=== PATIENT | male | born 1990 | race Caucasian/White ===

== ENCOUNTER 2021-09-02 14:03 | Observation (INO) | payer SELFPAY ==
[2021-09-02] MEDS ORDERED: Ketorolac 30 MG/ML SDV IVPUSH ONE (14:37)
[2021-09-02] MEDS ORDERED: Ondansetron 4 MG/2 ML SDV IVPUSH ONE (14:37)
[2021-09-02] MEDS ORDERED: HYDROmorphone 1 MG/ML Syringe IVPUSH ONE ×2 (14:37→17:17)
[2021-09-02] MEDS ORDERED: Sodium Chloride 0.9% 2.5 ML Syringe FLUSH PRN (14:37)
[2021-09-02] MEDS ORDERED: Sodium Chloride 0.9% 1,000 ML IV ONE ×2 (14:37→17:21)
[2021-09-02] MEDS ORDERED: Sodium Chloride 0.9% 10 ML Syringe FLUSH PRN (14:37)
[2021-09-02 15:03] LABS: BLOOD UREA NITROGEN,BUN 13 mg/dL (7.0-18.0); CARBON DIOXIDE,CO2 27.7 mmol/L (21.0-32.0); CHLORIDE,CL 100 mmol/L (98-107); GLUCOSE RANDOM 106 mg/dL (74-106); LIPASE 83 U/L (73-393); POTASSIUM,K 4.6 mmol/L (3.5-5.1); SODIUM,NA 135 mmol/L (136-148)
[2021-09-02 16:15] LABS: CORONAVIRUS COVID-19 NAA NEGATIVE (NEGATIVE); INFLUENZA A NAA NEGATIVE (NEGATIVE); INFLUENZA B NAA NEGATIVE (NEGATIVE)
[2021-09-02] MEDS ORDERED: Iopamidol 755 MG/ML 500 ML Multipack Bottle IVPUSH STA (16:47)
[2021-09-02] MEDS ORDERED: Piperacillin/Tazobactam 4.5 GM in Sodium Chloride 0.9% 100 ML IV ONE (17:17)
[2021-09-02] MEDS ORDERED: Esmolol 100 MG/10 ML SDV ONE (18:09)
[2021-09-02] MEDS ORDERED: Dexamethasone 4 MG/ML 5 ML MDV ONE (18:09)
[2021-09-02] MEDS ORDERED: Lidocaine 2% 5 ML SDV ONE (18:09)
[2021-09-02] MEDS ORDERED: Dexmedetomidine 200 MCG/2 ML SDV ONE (18:09)
[2021-09-02] MEDS ORDERED: Rocuronium Bromide 50 MG/5 ML Syringe ONE (18:09)
[2021-09-02] MEDS ORDERED: fentaNYL 100 MCG/2 ML SDV ONE (18:09)
[2021-09-02] MEDS ORDERED: Propofol 200 MG/20 ML SDV ONE (18:09)
[2021-09-02] MEDS ORDERED: Midazolam 1 MG/ML 2 ML SDV ONE (18:10)
[2021-09-02] MEDS ORDERED: Water For Injection, Sterile 20 ML ONE (18:10)
[2021-09-02] MEDS ORDERED: Octyl 2-Cyanoacrylate 1 Tube ONE (18:14)
[2021-09-02] MEDS ORDERED: Bupivacaine 25%/EPINEPHrine/PF 30 ML ONE (18:14)
[2021-09-02] MEDS ORDERED: Lactated Ringers 1,000 ML IV SCH ×2 (18:15→21:00)
[2021-09-02] MEDS ORDERED: Morphine 4 MG/ML VIAL IVPUSH PRN (19:17)
[2021-09-02] MEDS ORDERED: Ondansetron 4 MG/2 ML SDV IVPUSH PRN ×2 (19:17→20:48)
[2021-09-02] MEDS ORDERED: fentaNYL 100 MCG/2 ML SDV IVPUSH PRN (19:17)
[2021-09-02] MEDS ORDERED: Albuterol 0.083% 2.5 MG/3 ML Neb Soln NEB PRN (19:17)
[2021-09-02] MEDS ORDERED: Naloxone 0.4 MG/ML SDV IVPUSH PRN (19:17)
[2021-09-02] MEDS ORDERED: Metoclopramide 10 MG/2 ML SDV IVPUSH PRN (19:17)
[2021-09-02] MEDS ORDERED: HYDROmorphone 1 MG/ML Syringe IVPUSH PRN (19:17)
[2021-09-02] MEDS ORDERED: Sugammadex Sodium 200 MG/2 ML VIAL ONE (19:45)
[2021-09-02] MEDS ORDERED: Ondansetron 4 MG/2 ML SDV ONE (19:45)
[2021-09-02] MEDS ORDERED: Acetaminophen/oxyCODONE 325-5 MG Tab PO PRN (20:46)
[2021-09-02] MEDS: cefOXitin 1 GM in Premix Bag 1 BAG IV SCH (22:39)
[2021-09-02] MEDS: Morphine 4 MG/ML VIAL IVPUSH PRN (22:53)
[2021-09-03] MEDS: cefOXitin 1 GM in Premix Bag 1 BAG IV SCH ×4 (03:01→20:47)
[2021-09-03] MEDS: Morphine 4 MG/ML VIAL IVPUSH PRN ×4 (03:02→21:28)
[2021-09-04] MEDS: cefOXitin 1 GM in Premix Bag 1 BAG IV SCH ×2 (02:22→08:49)
== END 2021-09-04 11:50 | disposition home or self-care (01) ==
LOC: MW.ED 14:03 → MW.SDS 17:47 → MW.MS 21:05
PROVIDERS: ADMIT Surgery; ATTEND Surgery
DX: K35.32 Acute appendicitis with perforation, localized peritonitis, and gangrene, without abscess (principal); Z01.812 Encounter for preprocedural laboratory examination; Z20.822 Contact with and (suspected) exposure to COVID-19
CPT/HCPCS: 0240U; 36415; 44970; 74177; 80053; 81003; 83605; 83690; 85025; 87040; 96365; 96375; 96376; 99285; A9270; J0131; J0694; J1100; J1170; J1885; J2250; J2270; J2405; J2543; J2704; J3010; J3490; J7030; J7120; Q9967